=== PATIENT | male | born 1950 | race Caucasian/White ===

== ENCOUNTER 2021-05-30 19:48 | Emergency (ER) | payer MEDICARE, OTHER ==
[~2021-05-30] VITALS: Ht 177.8 cm; Wt 99.3 kg
[2021-05-30] MEDS ORDERED: TETANUS-DIPTH-ACEL PERTUSSIS 0.5ML SYR Tdap IM ONE (20:45)
[2021-05-30 23:24] VITALS: BP 193/104
== END 2021-05-30 23:40 | disposition short-term general hospital (02) ==
LOC: ER 19:51
DX: S06.5X0A Traumatic subdural hemorrhage without loss of consciousness, initial encounter (principal); W11.XXXA Fall on and from ladder, initial encounter; Y93.89 Activity, other specified; Y92.89 Other specified places as the place of occurrence of the external cause; Y99.8 Other external cause status
CPT/HCPCS: 70450; 90471; 90715